=== PATIENT | male | born 1940 | race Caucasian/White ===

== ENCOUNTER → 2017-09-04 | Outpatient (CLI) | payer OTHER ==
[~2017-09-04] MED LIST: ASA81BEC PO; BISA-LAX5 MG RECTAL; CARVEDILOL12.5 MG PO; CATAPRES0.1 MG PO; CATAPRES0.2 MG PO; CENTRUM SILVER1 EAC2 PO; CLARITIN-D 24 H1 TA1 PO; CLARITIN10 MG PO; CLONIDINE HCL0.3 M2 PO; COLACE 100 MG100 MG PO; COLACE100 MG PO; DULCOLAX5 MG PO; FELDENE20 MG PO; FISH OIL 1,001000 M2 PO; GLUCOSAMINE CH1 EAC7 PO; IMDUR 30 MG TAB30 M1 PO; KAPVAY0.1 MG PO; LEVOTHYROXIN0.125 M1 PO; LEVOTHYROXIN0.137 M1 PO; LEVOXYL50 MCG PO; LIPITOR10 MG PO; LISINOPRIL10 MG PO; MAG-AL PLUS XS30 ML PO; MAXZIDE-25 MG1 EACH PO; MELOXICAM15 MG PO; MOM PO; NIACIN 500 MG500 M1 PO; NORCO 5-325 TA1 EACH PO; NOVOLOG100 UNIT/1; PANTOPRAZOLE SO40 M1 PO; PERCOCET PO; PREPARATION H O28 GM RECTAL; SENNA PO; SYNTHROID137 MCG PO; SYNTHROID200 MCG PO; TRIAMTERENE-HC1 EAC1 PO; TUMS PO; TYLENOL325 MG PO; UNICOMPLEX M TA1 TA1 PO; VITAMIN D1000 UNI1 PO; VITAMIN D1000 UNIT PO
== END ==
LOC: RAD 11:30
DX: J98.4 Other disorders of lung (principal); J98.11 Atelectasis; M19.012 Primary osteoarthritis, left shoulder; M19.011 Primary osteoarthritis, right shoulder

== ENCOUNTER → 2017-10-04 | Outpatient (CLI) | payer OTHER ==
[~2017-10-04] VITALS: Ht 175.3 cm; Wt 78.5 kg
--- NOTE | ~2017-10-04 | CATHLAB ---
[facility] [place] [address] INVASIVE PROCEDURE REPORT Name: JASON MARTIN Room #: REG John#: [id number] Admission: 10/04/17 Attend Phys: Ronan Black, Discharge: Date of : 38 Date of Service: 10/11/17 1756 Report #: [id number] THIS REPORT FOR: //name// APPROVED REPORT Study performed: 10/04/2017 07:59:43 Patient Details Patient Status: Out-Patient Room #: The patient is a 77 year-old male Event Personnel Ronan Black Market Research Coordinator, Kirby Levi RN, Lupe Guillen RTR, KAMILLE Herron, Jad Antunez Monitor Procedures Performed Left Heart Cath Coronaries, Bypass Grafts [id number] LHCCORCABG Renal Bilateral Peripheral Angiography [id number] CVRENALBIL Indication Chest pain Procedure Narrative The Right Groin^ was infiltrated with 1% Lidocaine subcutaneous anesthesia. A PINNACLE 6FR Sheath #[id number] sheath was inserted into the RFA^. Coronary angiography was performed using coronary diagnostic catheters. The right coronary system was accessed and visualized with a JR4 catheter. The left coronary system was accessed and visualized with a JL4 catheter. The left ventricle was accessed and visualized with a PIGTAIL catheter. Left ventricular/Aortic Valve gradient assessed via catheter pullback. Left ventriculogram was performed in 30 degree projection. An aortogram of the abdominal aorta was performed. Pre-demployment femoral angiogram was performed . Closure device was deployed with a 6 Fr MYNXGRIP 6/7F #[id number]. The patient tolerated the procedure well and there were no complications associated with the procedure. There was no hematoma. Intraoperative Conscious Sedation Sedation start time: 8.43 Case end Time: 9.08 Fentanyl 50 mcg Versed 1.5 mg Fluoro Time: 9.02 minutes Dose: 820 mGy Contrast Type and Amount: Visipaque 160 ml [facility] [place] [address] INVASIVE PROCEDURE REPORT Name: JASON MARTIN Room #: REG [id number] Admission: 10/04/17 Attend Phys: Ronan Black, Discharge: Date of : 38 Date of Service: 10/11/17 1756 Report #: [id number] Hemodynamics The aortic pressure is 148/65 mmHg with a mean of 81 mmHg. The left ventricular pressure is 155/5 mmHg with a mean of mmHg. The left ventricular end diastolic pressure is 22 mmHg. There was no gradient across the aortic valve upon pullback. Pullback from the left ventricle to the aorta revealed no gradient across the aortic valve. Conclusion #1 normal left ventricular size and subtle inferior basilar hypokinesis EF 50% range #2 abdominal aorta is mildly ectatic without aneurysm mild dilatation of the iliac arteries are noted. #3 left main is large calcified mildly disease giving rise to an LAD which occludes at the circumflex artery. 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 #5 circumflex OM circumflex is moderately diseased proximal lesion of 60-70% mid vessel lesion of 70-80 however this is filling a very small distal circumflex system. The proximal OM branches are occluded #6 the CLEANING to LAD is intact with moderate diffuse disease in the LAD system the CLEANING is patent. 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 The torres martinez circumflex could be intervened on although it is supplying small distal vasculature. OM system is occluded and some collateral filling. Will obtain nuclear stress testing the next 3-6 months to correlate with this anatomy. But would continue aggressive medical therapy at this point. No lifting for 48 hours no line tub Jacuzzi or Boyle for a week. <ELECTRONICALLY SIGNED> By: Ronan Black MD, FACC 10/11/171755 55 55 Ronan Balck MD, FACC /INF
[2017-10-04 07:29] VITALS: BP 140/61
== END | disposition home or self-care (01) ==
LOC: CATH 06:26
DX: I25.10 Atherosclerotic heart disease of native coronary artery without angina pectoris (principal); I25.84 Coronary atherosclerosis due to calcified coronary lesion; I77.811 Abdominal aortic ectasia; I10 Essential (primary) hypertension; E03.9 Hypothyroidism, unspecified; E78.00 Pure hypercholesterolemia, unspecified; K21.9 Gastro-esophageal reflux disease without esophagitis; Z87.19 Personal history of other diseases of the digestive system; Z98.890 Other specified postprocedural states; Z90.49 Acquired absence of other specified parts of digestive tract; Z95.1 Presence of aortocoronary bypass graft; Z95.5 Presence of coronary angioplasty implant and graft; Z79.899 Other long term (current) drug therapy

== ENCOUNTER 2019-07-30 11:35 | Emergency (ER) | payer OTHER ==
[~2019-07-30] VITALS: Ht 172.7 cm; Wt 83.9 kg
[2019-07-30 12:48] LABS: ABSOLUTE NEUTROPHILS 5.6 thou/uL (1.4-8.2); BASOPHILS 0.7 % (0.0-2.0); EOSINOPHILS 1.4 % (0.0-3.0); HEMATOCRIT 44.3 % (42.0-52.0); HEMOGLOBIN 14.2 gm/dL (14.0-18.0); LYMPHOCYTES 11.2 % (24.0-44.0); MCH 28.2 pg (26.0-34.0); MCHC 32.1 g/dL (28.0-37.0); MCV 87.8 fL (80.0-100.0); MONOCYTES 8.8 % (1.0-8.0); POLYS 77.9 % (36.0-66.0); RBC 5.04 mil/uL (4.50-6.00); RDW 14.8 % (10.5-14.5); WBC 7.2 thou/uL (4.0-11.0)
[2019-07-30 12:58] LABS: CALCIUM 9.7 mg/dL (8.5-10.1); CREATININE 1.3 mg/dL (0.7-1.3); POTASSIUM 4.2 mmol/L (3.5-5.1)
[2019-07-30 13:04] LABS: ALBUMIN 4.5 g/dL (3.4-5.0); TOTAL BILIRUBIN 0.6 mg/dL (<0.1-1.0)
[2019-07-30 13:07] LABS: PLATELET COUNT 192 thou/uL (150-400); PLATELET ESTIMATE NORMAL
[2019-07-30 13:15] LABS: URINE BILIRUBIN NEGATIVE (Negative); URINE BLOOD TRACE (Negative); URINE CLARITY CLEAR; URINE COLOR YELLOW; URINE GLUCOSE-RANDOM* NEGATIVE (Negative); URINE KETONES NEGATIVE (Negative); URINE LEUKOCYTES-REFLEX NEGATIVE (Negative); URINE NITRITE-REFLEX NEGATIVE (Negative); URINE PROTEIN (DIPSTICK) 2+ (Negative); URINE SPECIFIC GRAVITY >= 1.030 (1.005-1.035); URINE UROBILINOGEN 0.2 E.U./dl (0.2-1.0)
[2019-07-30 13:27] LABS: BACTERIA-REFLEX 1-9 Few /HPF (None Seen); CASTS None Seen /LPF (None Seen); CRYSTALS None Seen /LPF (None Seen); SQUAMOUS 0-3 Few /LPF (0-3); URINE RBC 0-2 Rare /HPF (0-2); URINE WBC-REFLEX None Seen /HPF (0-5)
--- NOTE | 2019-07-30 14:33 | NUR ---
cm asked to come and visit with pt son karlee rt unsafe staying at home alone. he is confused and not recognizing (mom) his . he usually helps mom at home, she has parkinson. new order for pt ot eval. ok to have [facility] hosp of op acute rehab eval. per ED AP 5 S going to eval. resources senior blue book, hh list choose and private duty provided to son. education that if his parents unable to meet the need to be in hospital or meet need for acute rehab then having family split shift at home until private duty can be set up. " they cant afford private duty"/son. rehab notified of eval in ed.
[2019-07-30 16:06] VITALS: BP 118/63
== END 2019-07-30 19:52 | disposition home or self-care (01) ==
LOC: ER 11:35
PROVIDERS: Physician Assistant
DX: F03.90 Unspecified dementia, unspecified severity, without behavioral disturbance, psychotic disturbance, mood disturbance, and anxiety (principal); I10 Essential (primary) hypertension; I25.10 Atherosclerotic heart disease of native coronary artery without angina pectoris; E78.00 Pure hypercholesterolemia, unspecified; E03.9 Hypothyroidism, unspecified; K21.9 Gastro-esophageal reflux disease without esophagitis; Z90.49 Acquired absence of other specified parts of digestive tract; Z85.46 Personal history of malignant neoplasm of prostate; Z87.891 Personal history of nicotine dependence